=== PATIENT | female | born 1960 | race Caucasian/White ===

== ENCOUNTER 2016-09-10 12:16 | Outpatient (CLI) | payer OTHER | END 2016-09-10 12:17 | disposition home or self-care (01) | DX: R92.1 Mammographic calcification found on diagnostic imaging of breast (principal) ==

== ENCOUNTER 2016-09-21 16:19 | Outpatient (CLI) | payer OTHER | END 2016-09-21 16:20 | disposition home or self-care (01) | DX: M19.041 Primary osteoarthritis, right hand (principal) ==

== ENCOUNTER 2016-11-19 11:25 | Outpatient (CLI) | payer OTHER | END 2016-11-19 11:26 | disposition home or self-care (01) | DX: D48.5 Neoplasm of uncertain behavior of skin (principal) ==

== ENCOUNTER 2016-11-20 14:45 | Outpatient (CLI) | payer OTHER | END 2016-11-20 14:46 | disposition home or self-care (01) | DX: R30.0 Dysuria (principal) ==

== ENCOUNTER 2016-12-28 08:29 | Outpatient (CLI) | payer OTHER ==
--- NOTE | 2016-12-28 12:37 | Ultrasound Report ---
ULTRASOUND LEFT AXILLA: 12/28/2016 CLINICAL INDICATION: Palpable abnormality. 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 FINDINGS: Ultrasound of the palpable abnormality identified by the patient was performed. At this site, there is a 0.7 x 0.5 x 0.3 cm lymph node. No sonographically suspicious findings are identified. IMPRESSION: NORMAL LEFT AXILLARY LYMPH NODE. MTDD
== END 2016-12-28 08:30 | disposition home or self-care (01) ==
LOC: DI 08:29
PROVIDERS: ATTEND Physician Assistant Medical
DX: R22.9 Localized swelling, mass and lump, unspecified (principal)
CPT/HCPCS: 76882

== ENCOUNTER 2017-01-08 08:05 | Outpatient (CLI) | payer OTHER ==
[2017-01-08 11:18] LABS: BASOPHILS % (AUTO) 0.8 %; EOSINOPHILS # (AUTO) 0.1 10^3/uL (0.0-0.7); EOSINOPHILS % (AUTO) 2.4 %; HCT - HEMATOCRIT 38.7 % (37.0-47.0); HGB - HEMOGLOBIN 12.8 g/dL (12.0-16.0); LYMPHOCYTES # (AUTO) 1.9 10^3/uL (1.5-3.5); LYMPHOCYTES % (AUTO) 40.5 %; MEAN CORPUSCULAR HGB CONC 33.1 g/dL (32.0-36.0); MEAN CORPUSCULAR VOLUME 93.8 fL (81.0-99.0); MEAN PLATELET VOLUME 9.4 fL (7.9-10.8); MONOCYTES # (AUTO) 0.2 10^3/uL (0.0-1.0); MONOCYTES % (AUTO) 4.8 %; NEUTROPHILS # (AUTO) 2.4 10^3/uL (1.5-6.6); NEUTROPHILS % (AUTO) 51.5 %; RED BLOOD COUNT 4.13 10^6/uL (4.20-5.40); RED CELL DISTRIBUTION WIDTH 13.6 % (12.0-15.0); UNCORRECTED WHITE BLOOD COUNT 4.6 x10^3/uL; WHITE BLOOD COUNT 4.6 x10^3/uL (4.8-10.8)
[2017-01-08 11:37] LABS: ALBUMIN/GLOBULIN RATIO 1.9 (1.0-2.2); BUN - BLOOD UREA NITROGEN 14 mg/dL (6-20); CALCIUM 9.5 mg/dL (8.5-10.3); CARBON DIOXIDE - CO2 28 mmol/L (21-32); CHLORIDE 102 mmol/L (101-111); CHOL/HDL RATIO 2.2 (<4.4); CHOLESTEROL 205 mg/dL; CREATININE 0.8 mg/dL (0.4-1.0); GFR - MDRD 75 (>89); GLUCOSE 81 mg/dL (70-100); HDL CHOLESTEROL 95 mg/dL; POTASSIUM 3.9 mmol/L (3.5-5.0); SODIUM 137 mmol/L (135-145); TOTAL PROTEIN 6.9 g/dL (6.7-8.2); TRIGLYCERIDES 68 mg/dL; VLDL CHOLESTEROL 14 mg/dL
== END 2017-01-08 08:06 | disposition home or self-care (01) ==
LOC: LAB.R 08:05
PROVIDERS: ATTEND Physician Assistant Medical
DX: Z00.00 Encounter for general adult medical examination without abnormal findings (principal); F32.9 Major depressive disorder, single episode, unspecified; E55.9 Vitamin D deficiency, unspecified; Z79.899 Other long term (current) drug therapy
CPT/HCPCS: 80053; 80061; 82306; 84443; 85025

== ENCOUNTER 2017-02-12 16:08 | Outpatient (CLI) | payer OTHER | END 2017-02-12 16:09 | disposition home or self-care (01) | LOC: LAB 16:08 | PROVIDERS: ATTEND Physician Assistant Medical | DX: Z11.59 Encounter for screening for other viral diseases (principal); Z11.3 Encounter for screening for infections with a predominantly sexual mode of transmission | CPT/HCPCS: 86803; 87389 ==

== ENCOUNTER 2017-10-29 07:48 | Outpatient (CLI) | payer OTHER ==
--- NOTE | 2017-10-30 18:12 | Mammography Report ---
DIGITAL SCREENING MAMMOGRAM: 10/29/2017 INDICATION: A 56-year-old nulliparous patient for screening. COMPARISON: 08/2016, 02/2016, 07/2015, 01/2015, 06/2014, 06/2013, 05/2011, 05/2010. TECHNIQUE: Routine CC and MLO projections were obtained of the breasts. Bilateral laterally exaggerated craniocaudal views. FINDINGS: The breasts demonstrate heterogeneously dense fibroglandular parenchyma bilaterally. Punctate, typically benign calcifications are present. No suspicious masses, clustered microcalcifications, or regions of architectural distortion are identified. IMPRESSION: BENIGN FINDINGS. RECOMMENDATION: Routine annual screening unless otherwise clinically indicated. BIRADS CATEGORY - 2 BENIGN FINDINGS. STANDARD QUALIFYING STATEMENTS: 1. This examination was reviewed with the aid of Computer-Aided Detection (CAD). 2. A negative or benign imaging report should not delay biopsy if clinically suspicious findings are present. Consider surgical consultation if warranted. More than 5% of cancers are not identified by imaging. 3. Dense breasts may obscure an underlying neoplasm. TD: 10/30/2017 18:11
== END 2017-10-29 07:49 | disposition home or self-care (01) ==
LOC: DI 07:48
PROVIDERS: ATTEND Physician Assistant Medical
DX: Z12.31 Encounter for screening mammogram for malignant neoplasm of breast (principal)
CPT/HCPCS: 77067

== ENCOUNTER 2018-01-23 08:19 | Outpatient (CLI) | payer OTHER ==
[2018-01-23 08:49] LABS: BASOPHILS % (AUTO) 1.1 %; EOSINOPHILS # (AUTO) 0.1 10^3/uL (0.0-0.7); EOSINOPHILS % (AUTO) 1.9 %; HGB - HEMOGLOBIN 12.5 g/dL (12.0-16.0); LYMPHOCYTES # (AUTO) 1.7 10^3/uL (1.5-3.5); LYMPHOCYTES % (AUTO) 41.4 %; MEAN CORPUSCULAR HEMOGLOBIN 31.2 pg (27.0-31.0); MEAN CORPUSCULAR HGB CONC 33.3 g/dL (32.0-36.0); MEAN CORPUSCULAR VOLUME 93.8 fL (81.0-99.0); MEAN PLATELET VOLUME 8.6 fL (7.9-10.8); MONOCYTES # (AUTO) 0.3 10^3/uL (0.0-1.0); MONOCYTES % (AUTO) 6.5 %; NEUTROPHILS % (AUTO) 49.1 %; PLT - PLATELET COUNT 256 10^3/uL (130-450); RED BLOOD COUNT 4.01 10^6/uL (4.20-5.40); RED CELL DISTRIBUTION WIDTH 13.2 % (12.0-15.0); WHITE BLOOD COUNT 4.1 x10^3/uL (4.8-10.8)
[2018-01-23 09:12] LABS: ALBUMIN 4.2 g/dL (3.2-5.5); ALBUMIN/GLOBULIN RATIO 1.8 (1.0-2.2); ALKALINE PHOSPHATASE 57 IU/L (42-121); ALT ALANINE AMINOTRANSFERASE 22 IU/L (10-60); AST ASPARTATE AMINOTRANSFERASE 23 IU/L (10-42); BUN - BLOOD UREA NITROGEN 13 mg/dL (6-20); CALCIUM 9.3 mg/dL (8.5-10.3); CARBON DIOXIDE - CO2 28 mmol/L (21-32); CHLORIDE 102 mmol/L (101-111); CHOL/HDL RATIO 2.2 (<4.4); CHOLESTEROL 210 mg/dL; CREATININE 0.9 mg/dL (0.4-1.0); GFR - MDRD 65 (>89); GLUCOSE 97 mg/dL (70-100); HDL CHOLESTEROL 95 mg/dL; LDL CHOLESTEROL,CALCULATED 104 mg/dL; LDL/HDL RATIO 1.1 (<4.4); SODIUM 137 mmol/L (135-145); TOTAL PROTEIN 6.6 g/dL (6.7-8.2); VLDL CHOLESTEROL 11 mg/dL
== END 2018-01-23 08:20 | disposition home or self-care (01) ==
LOC: LAB 08:19
PROVIDERS: ATTEND Physician Assistant Medical
DX: Z00.00 Encounter for general adult medical examination without abnormal findings (principal)
CPT/HCPCS: 36415; 80053; 80061; 83721; 84443; 85025

== ENCOUNTER 2018-09-08 14:46 | Outpatient (CLI) | payer OTHER | END 2018-09-08 14:47 | disposition home or self-care (01) | LOC: SC 14:46 | PROVIDERS: ATTEND Internal Medicine Pulmonary Disease | DX: R06.83 Snoring (principal) | CPT/HCPCS: 99203; 99212 ==

== ENCOUNTER 2018-10-01 19:30 | Outpatient (CLI) | payer OTHER | END 2018-10-01 23:59 | disposition home or self-care (01) | LOC: SC 19:30 | PROVIDERS: ATTEND Internal Medicine Pulmonary Disease | DX: G47.10 Hypersomnia, unspecified (principal) | CPT/HCPCS: 95806 ==

== ENCOUNTER 2018-11-19 16:14 | Outpatient (CLI) | payer OTHER | END 2018-11-19 16:15 | disposition home or self-care (01) | LOC: SC 16:14 | PROVIDERS: ATTEND Nurse Practitioner Family | DX: R06.83 Snoring (principal); R53.83 Other fatigue | CPT/HCPCS: 99212; 99213 ==

== ENCOUNTER 2019-11-11 09:17 | Outpatient (CLI) | payer OTHER ==
[2019-11-11 09:41] LABS: BASOPHILS % (AUTO) 0.5 %; EOSINOPHILS # (AUTO) 0.1 10^3/uL (0.0-0.7); EOSINOPHILS % (AUTO) 1.7 %; HGB - HEMOGLOBIN 12.3 g/dL (12.0-16.0); LYMPHOCYTES # (AUTO) 1.5 10^3/uL (1.5-3.5); LYMPHOCYTES % (AUTO) 37.2 %; MEAN CORPUSCULAR HEMOGLOBIN 31.1 pg (27.0-31.0); MEAN CORPUSCULAR HGB CONC 32.5 g/dL (32.0-36.0); MEAN CORPUSCULAR VOLUME 95.9 fL (81.0-99.0); MEAN PLATELET VOLUME 10.5 fL (7.9-10.8); MONOCYTES # (AUTO) 0.2 10^3/uL (0.0-1.0); MONOCYTES % (AUTO) 5.2 %; NEUTROPHILS # (AUTO) 2.2 10^3/uL (1.5-6.6); NEUTROPHILS % (AUTO) 55.2 %; PLT - PLATELET COUNT 270 10^3/uL (130-450); RED BLOOD COUNT 3.95 10^6/uL (4.20-5.40); RED CELL DISTRIBUTION WIDTH 12.7 % (12.0-15.0)
[2019-11-11 09:47] LABS: ALBUMIN 4.1 g/dL (3.2-5.5); ALBUMIN/GLOBULIN RATIO 1.8 (1.0-2.2); ALKALINE PHOSPHATASE 77 IU/L (42-121); ALT ALANINE AMINOTRANSFERASE 17 IU/L (10-60); AST ASPARTATE AMINOTRANSFERASE 17 IU/L (10-42); BILIRUBIN,TOTAL 0.7 mg/dL (0.2-1.0); BUN - BLOOD UREA NITROGEN 17 mg/dL (6-20); CALCIUM 8.8 mg/dL (8.5-10.3); CARBON DIOXIDE - CO2 29 mmol/L (21-32); CHLORIDE 103 mmol/L (101-111); CHOLESTEROL 218 mg/dL; CREATININE 0.8 mg/dL (0.4-1.0); GLUCOSE 99 mg/dL (70-100); HDL CHOLESTEROL 73 mg/dL; LDL CHOLESTEROL,CALCULATED 136 mg/dL; LDL/HDL RATIO 1.9 (<4.4); SODIUM 136 mmol/L (135-145); TOTAL PROTEIN 6.4 g/dL (6.7-8.2); VLDL CHOLESTEROL 9 mg/dL
== END 2019-11-11 09:18 | disposition home or self-care (01) ==
LOC: LAB 09:17
PROVIDERS: ATTEND Nurse Practitioner
DX: Z00.00 Encounter for general adult medical examination without abnormal findings (principal); R00.2 Palpitations; Z79.890 Hormone replacement therapy; F41.9 Anxiety disorder, unspecified; F32.9 Major depressive disorder, single episode, unspecified
CPT/HCPCS: 36415; 80053; 80061; 83721; 84443; 85025

== ENCOUNTER 2020-01-11 08:40 | Outpatient (CLI) | payer OTHER ==
--- NOTE | 2020-01-12 15:45 | Mammography Report ---
BILATERAL DIGITAL SCREENING MAMMOGRAM 3D/2D: 01/11/2020 CLINICAL: Routine screening. Comparison is made to exams dated: 10/29/2017 mammogram, 09/10/2016 mammogram, 03/01/2016 mammogram, mammogram, 01/18/2015 mammogram, and 07/13/2014 mammogram - [facility]. The tissue of both breasts is extremely dense, which lowers the sensitivity of mammography. There is an oval equal density focal asymmetry with an obscured and circumscribed margin in the right breast at 7 o'clock posterior depth. There is an oval equal density asymmetry with an obscured and indistinct margin in the left breast po sterior depth lateral region seen on the craniocaudal view only. No other significant masses or calcifications are seen in either breast. IMPRESSION: INCOMPLETE: NEEDS ADDITIONAL IMAGING EVALUATION The oval equal density focal asymmetry in the right breast at 7 o'clock posterior depth is indetermin ate. Mediolateral and spot compression views as well as additional views with possible ultrasound ar e recommended. The oval equal density asymmetry in the left breast posterior depth lateral region seen on the cranio caudal view only is indeterminate. Mediolateral and spot compression views as well as additional vie ws with possible ultrasound are recommended. This exam was interpreted at Station ID: [id number]. NOTE: For mammograms, a report in lay terms will be sent to the patient. Approximately 15% of breast malignancies will not be visualized mammographically. In the management of a palpable breast mass, a negative mammogram must not discourage biopsy of a clinically suspicious lesion. Electronically Signed By: Sebas Villalba M.D. ddp/:01/12/2020 10:37:29 ACR BI-RADS Category 0: Incomplete 3340F PARENCHYMAL PATTERN: (VD) - The breast(s) demonstrate(s) extremely dense parenchyma, limiting the sen sitivity of mammography. BI-RADS CATEGORY: (0) - 0 Mammo and [place] [id number] Immediate follow-up LATERALITY: (B)
== END 2020-01-11 08:41 | disposition home or self-care (01) ==
LOC: DI 08:40
PROVIDERS: ATTEND Nurse Practitioner
DX: Z12.31 Encounter for screening mammogram for malignant neoplasm of breast (principal); R92.8 Other abnormal and inconclusive findings on diagnostic imaging of breast
CPT/HCPCS: 77063; 77067

== ENCOUNTER 2020-01-19 13:51 | Outpatient (CLI) | payer OTHER ==
--- NOTE | 2020-01-19 15:56 | XRAY Report ---
PROCEDURE: Foot 2 View LT INDICATIONS: FOOT JOINT PAIN, LEFT TECHNIQUE: 2 views of the foot were acquired. COMPARISON: None. FINDINGS: Bones: There is a dorsal cutaneous BB marker corresponding to the area of clinical symptoms in the f orefoot overlying the second metatarsal shaft. No fractures or dislocations. There is suggestion of cortical thickening in the second metatarsal shaft without a definite periosteal reaction. No discret e fracture line identified. There is mild degeneration of the first metatarsophalangeal joint. Soft tissues: There is mild periarticular soft tissue swelling at the first metatarsophalangeal join t. IMPRESSION: 1. Suggestion of cortical thickening in the second metatarsal which may reflect a stress reaction alt fior there is no definite periosteal thickening. No fracture line identified. Further evaluation may be obtained with an MRI if clinically indicated. Reviewed by: Sebas Villalba MD on 01/19/2020 3:54 PM PDT Approved by: Sebas Villalba MD on 01/19/2020 3:54 PM PDT Station ID: [id number]
== END 2020-01-19 13:52 | disposition home or self-care (01) ==
LOC: DI 13:51
PROVIDERS: ATTEND Nurse Practitioner Family
DX: M79.672 Pain in left foot (principal)

== ENCOUNTER 2020-03-04 10:55 | Outpatient (CLI) | payer OTHER ==
[2020-03-04] MEDS ORDERED: BUPIVACAINE 0.5% PF 10 ML VIAL ONE (11:04)
[2020-03-04] MEDS ORDERED: BUPIVACAINE 0.5% PF 10 ML VIAL IM ONE (17:47)
--- NOTE | 2020-03-09 06:40 | Mammography Report ---
UNILATERAL RIGHT DIGITAL DIAGNOSTIC MAMMOGRAM 3D/2D: 03/04/2020 CLINICAL: Post right breast ultrasound biopsy, clip placement imaging. Comparison is made to exams dated: 02/15/2020 mammogram, 01/11/2020 mammogram, 10/29/2017 mammogram, 08/16 mammogram, 03/01/2016 mammogram, and 08/09/2015 mammogram - [facility]. The t issue of right breast is extremely dense, which lowers the sensitivity of mammography. There is a marker clip in the appropriate position in the right breast 8 oclock position. IMPRESSION: POST PROCEDURE MAMMOGRAM FOR MARKER PLACEMENT There was a successful marker clip placement in the right breast 8 oclock. This exam was interpreted at Station ID: [id number]. NOTE: For mammograms, a report in lay terms will be sent to the patient. Approximately 15% of breast malignancies will not be visualized mammographically. In the management of a palpable breast mass, a negative mammogram must not discourage biopsy of a clinically suspicious lesion. Electronically Signed By: Joseline Lauren M.D. [facility]/:03/08/2020 17:41:02 ACR BI-RADS Category Post-procedure mammogram for marker placement PARENCHYMAL PATTERN: (VD) - The breast(s) demonstrate(s) extremely dense parenchyma, limiting the sen sitivity of mammography. BI-RADS CATEGORY: () - Unspecified - other recall n/a LATERALITY: (B)
--- NOTE | 2020-03-11 07:38 | Ultrasound Report ---
ULTRASOUND GUIDED BIOPSY RIGHT BREAST WITH MARKING DEVICE INSERTED: 03/04/2020 CLINICAL: Right breast mass. PATIENT CONSENT: Risks (minor bleeding, infection, vasovagal reaction and repeat procedure), benefits and alternatives were explained to the patient and written informed consent was obtained. Correlation is made to exams dated: 02/15/2020 ultrasound and 02/15/2020 mammogram - [facility]. An ultrasound guided biopsy using real-time ultrasound was performed for the circumscribed oval cysti c mass located in the right breast at 8 o'clock posterior depth. The skin was prepped in the usual m halie. Topical and local anesthetic was administered to the access site. A small incision was made in the breast. The abnormality was approached from the medial aspect. A biopsy needle was placed ad jacent to the abnormality under ultrasound guidance. Once the needle was documented to be in the cor rect location, a specimen was obtained using an Achieve automated firing device. After the first bio psy pass, the lesion was no longer visualized. A titanium clip was inserted into the biopsy cavity. A sterile dressing was applied to the access site. The specimen was sent to the laboratory for patho logical analysis. IMPRESSION: ULTRASOUND GUIDED BIOPSY BENIGN Ultrasound guided biopsy of the cystic mass in the right breast at 8 o'clock posterior depth was succ essful. Pathology indicates benign ductal epithelial hyperplasia without atypia. Pathology results are concordant with mammography and ultrasound findings. Return to screening mammography recommended. This exam was interpreted at Station ID: [id number]. Joseline Villalba M.D. [facility],ddp/:03/10/2020 08:06:37 BI-RADS CATEGORY: () - Unspecified - other recall n/a LATERALITY: (B)
== END 2020-03-04 10:56 | disposition home or self-care (01) ==
LOC: DI 10:55
PROVIDERS: ATTEND Nurse Practitioner
DX: N62 Hypertrophy of breast (principal)
CPT/HCPCS: 19083

== ENCOUNTER 2021-07-06 13:21 | Outpatient (CLI) | payer OTHER ==
[2021-07-06 14:15] LABS: T4 (THYROXINE) 7.31 ug/dL (6.09-12.23)
[2021-07-06 14:18] LABS: THYROID STIMULATING HORMONE 1.53 uIU/mL (0.34-5.60)
[2021-07-06 14:19] LABS: FREE T3 2.74 pg/mL (2.5-3.9); FREE T4 (FREE THYROXINE) 0.81 ng/dL (0.58-1.64)
== END 2021-07-06 13:22 | disposition home or self-care (01) ==
LOC: LAB 13:21
PROVIDERS: ATTEND Registered Nurse
DX: F33.1 Major depressive disorder, recurrent, moderate (principal); F40.10 Social phobia, unspecified; F41.1 Generalized anxiety disorder; F90.0 Attention-deficit hyperactivity disorder, predominantly inattentive type
CPT/HCPCS: 36415; 81599; 84436; 84439; 84443; 84480; 84481; 84482; 86376; 86800

== ENCOUNTER 2021-11-27 09:56 | Outpatient (CLI) | payer OTHER ==
[2021-11-27 10:09] LABS: BASOPHILS % (AUTO) 0.5 %; EOSINOPHILS # (AUTO) 0.1 10^3/uL (0.0-0.7); HCT - HEMATOCRIT 37.1 % (37.0-47.0); HGB - HEMOGLOBIN 12.1 g/dL (12.0-16.0); LYMPHOCYTES # (AUTO) 1.5 10^3/uL (1.5-3.5); LYMPHOCYTES % (AUTO) 34.6 %; MEAN CORPUSCULAR HEMOGLOBIN 30.4 pg (27.0-31.0); MEAN CORPUSCULAR HGB CONC 32.6 g/dL (32.0-36.0); MEAN CORPUSCULAR VOLUME 93.2 fL (81.0-99.0); MEAN PLATELET VOLUME 9.9 fL (7.9-10.8); MONOCYTES # (AUTO) 0.2 10^3/uL (0.0-1.0); MONOCYTES % (AUTO) 5.2 %; NEUTROPHILS # (AUTO) 2.5 10^3/uL (1.5-6.6); NEUTROPHILS % (AUTO) 57.5 %; PLT - PLATELET COUNT 324 10^3/uL (130-450); RED BLOOD COUNT 3.98 10^6/uL (4.20-5.40); RED CELL DISTRIBUTION WIDTH 13.1 % (12.0-15.0); WHITE BLOOD COUNT 4.4 x10^3/uL (4.8-10.8)
[2021-11-27 10:32] LABS: ALBUMIN 4.3 g/dL (3.2-5.5); ALBUMIN/GLOBULIN RATIO 1.8 (1.0-2.2); ALKALINE PHOSPHATASE 70 IU/L (42-121); ALT ALANINE AMINOTRANSFERASE 20 IU/L (10-60); AST ASPARTATE AMINOTRANSFERASE 23 IU/L (10-42); BILIRUBIN,TOTAL 0.8 mg/dL (0.2-1.0); BUN - BLOOD UREA NITROGEN 18 mg/dL (6-20); CALCIUM 9.2 mg/dL (8.5-10.3); CARBON DIOXIDE - CO2 25 mmol/L (21-32); CHLORIDE 100 mmol/L (101-111); CHOL/HDL RATIO 2.5 (<4.4); CHOLESTEROL 233 mg/dL; CREATININE 0.9 mg/dL (0.4-1.0); GFR - MDRD 64 (>89); GLUCOSE 89 mg/dL (70-100); HDL CHOLESTEROL 92 mg/dL; LDL CHOLESTEROL,CALCULATED 132 mg/dL; LDL/HDL RATIO 1.4 (<4.4); SODIUM 135 mmol/L (135-145); TOTAL PROTEIN 6.7 g/dL (6.7-8.2); TRIGLYCERIDES 46 mg/dL; VLDL CHOLESTEROL 9 mg/dL
[2021-11-27 10:34] LABS: CRP - C-REACTIVE PROTEIN < 1.0 mg/dL (0-1.0)
[2021-11-28 06:11] LABS: HCV AB <0.1 s/co ratio (0.0-0.9)
== END 2021-11-27 09:57 | disposition home or self-care (01) ==
LOC: LAB 09:56
PROVIDERS: ATTEND Internal Medicine
DX: Z00.00 Encounter for general adult medical examination without abnormal findings (principal); F41.9 Anxiety disorder, unspecified; F90.9 Attention-deficit hyperactivity disorder, unspecified type; F32.A Depression, unspecified; R51.9 Headache, unspecified; H61.22 Impacted cerumen, left ear; J30.2 Other seasonal allergic rhinitis; Z11.59 Encounter for screening for other viral diseases
CPT/HCPCS: 36415; 80053; 80061; 83721; 84443; 85025; 85651; 86140; 86803

== ENCOUNTER 2022-09-19 14:11 | Emergency (ER) | payer OTHER ==
[2022-09-19] MEDS ORDERED: IBUPROFEN 600 MG TABLET PO STA (15:40)
[2022-09-19] MEDS ORDERED: TETANUS/DIPHTHERIA/PERTUSSIS 0.5 ML SYRINGE IM ONE (15:40)
--- NOTE | 2022-09-19 15:45 | ED Physician Documentation ---
History of Present Illness - Stated complaint Stated Complaint: FELL HIT CHIN - Chief complaint Chief Complaint: Laceration - Additonal information Additional information: 61-year-old female presents emergency department for evaluation of left jaw pain as well as a laceration to her left chin. Also reporting pain to the left elbow. She works for [employer] and was walking into the office with her arms full. She tripped and fell directly onto the elbow and then struck her chin on the concrete. Did not lose consciousness. Is not anticoagulated. She does have a small 1 cm laceration on the chin. Reporting left elbow pain as w ell as pain in the left TMJ region. Mild trismus. No malocclusion. Review of Systems Constitutional: denies: Fever, Chills Eyes: reports: Reviewed and negative Nose: denies: Epistaxis, Other (1 cm laceration on the right chin. Tenderness to the left TMJ) Throat: reports: Other Cardiac: reports: Reviewed and negative Respiratory: reports: Reviewed and negative GI: reports: Reviewed and negative : reports: Reviewed and negative PD PAST MEDICAL HISTORY - Past Medical History Cardiovascular: None Respiratory: None Endocrine/Autoimmune: None GI: Ulcerative colitis : None HEENT: None Psych: Depression Musculoskeletal: None Derm: None - Present Medications Home Medications: Ambulatory Orders Medication Instructions Recorded Confirmed Control Pill 09/09/13 09/09/13 Bupropion HCl [Bupropion HCl Sr] 450 mg PO 09/09/13 09/09/13 oxyCODONE [Roxicodone] 5 mg PO TID PRN #20 tablet 09/19/22 - Allergies Allergies/Adverse Reactions: Allergies Allergy/AdvReac Type Severity Reaction Status Date / Time No Known Drug Allergies Allergy Verified 09/09/13 14:00 PD ED PE EXPANDED - General General: Alert, No acute distress, Well developed/nourished - HEENT HEENT: Pharynx normal, Other (1 cm laceration right chin.Mild trismus. Pain with opening of the left jaw. No click or malocclusion of teeth). No: Tonsillar exudate - Neck Neck: Supple w/out meningeal sx. No: Adenopathy, No tenderness, Soft tissue TTP, Bony TTP, Limited ROM - Extremities Extremities: Left elbow (Mild tenderness and swelling of the olecranon. No tenderness of either medial or lateral epicondyles. Normal flexion extension and pronation and supination. 2+ radial pulse.) Results - Vitals Vitals: Vital Signs - 24 hr 09/19/22 14:15 Temperature 36.4 C L Heart Rate 80 Respiratory 16 Rate Blood Pressure 161/89 H O2 Saturation 98 Oxygen O2 Source Room air - Rads (name of study) left elbow Relevant Findings:: Final report received (No acute osseous abnormality.) [facility] CT Relevant Findings:: Final report received (Fracture of the neck of the left mandibular condyle) Procedures - Laceration (location) chin Length in cm: 1.5 Wound type: Irregular, Into subcut fat Neurovascular status: Sensory intact, Motor intact Anesthesia: Lidocaine 1% Wound preparation: Irrigated copiously NS Skin layer closure: Nylon, Interrupted, Size #-0 - enter number (6), Sutures - enter # (4) Other: Patient tolerated well, No complications, Neurovascular intact, Tetanus UTD PD Medical Decision Making - ED course Complexity details: reviewed results, re-evaluated patient, considered differential, d/w patient, d/w office 365 consultant (Valentina Phelps MD) ED course: 61-year-old female presents emergency department for evaluation of left jaw pain and a laceration to her chin. She was walking while on the job when she tripped falling forward. She did land on her left elbow. Sustained 1.5 cm laceration to the chin. Also reporting pain in the left jaw near the ear. On presentation she is a Glascow of 15. No focal neurodeficits. She does have mild trismus but no malocclusion of the teeth. A CT of the maxillofacial bones shows a fracture of the neck of the left mandibular condyle. This imaging was shared through hip protocol with Dr. Santos Gil, [facility] surgeon. He reports that this is a nonoperative fracture. He would like to see the patient in his office tomorrow. Patient is to be on a full liquid diet. No softs. The laceration on her chin was closed with 4 sutures. An x-ray of the left elbow was interpreted by the radiologist as negative for fracture. Patient will be discharged with prescription for oxycodone. [employer] [id number] was completed at the bedside. Patient is cleared to return to full duty though she may miss work if operative interventions become necessary. Departure - Departure Disposition: 01 Home, Self Care Clinical Impression: Ground-level fall, Pain in upper jaw Chin laceration Qualifiers: Encounter type: initial encounter Qualified Code(s): S01.81XA - Laceration without foreign body of other part of head, initial encounter Left elbow contusion Qualifiers: Encounter type: initial encounter Qualified Code(s): S50.02XA - Contusion of left elbow, initial encounter Instructions: ED Fx Mandible Prescriptions: oxyCODONE [Roxicodone] 5 mg PO TID PRN #20 tablet PRN Reason: Pain Comments: You are seen today in the emergency department after a fall. You did sustain a laceration to your chin which was closed with 4 sutures. These should be removed in 7 to 10 days. You can shower normally. Apply thin layer of antibiotic ointment to the wound. Unfortunately the CT scan does show that you have a fracture of your left jaw just below the joint. This case was briefly discussed brennan with FS surgeon Dr. Phelps. He does request to see you in office tomorrow. Please call his office at [phone] the office will make arrangements for you to be seen tomorrow. Santos Phelps [address] [place] [address] The type of fracture you have means that you can have a full liquid diet only. These are thin liquids. Not soft foods. Not milkshakes. Thin liquids. In order to make sure you are able to get enough protein I do advise that you buy Ensure With protein drinks and try and drink 2-3 of them a day.
--- NOTE | 2022-09-19 17:11 | XRAY Report ---
PROCEDURE: Elbow 3 View LT INDICATIONS: olecranon pain after fall TECHNIQUE: 4 views of the elbow were acquired. COMPARISON: None FINDINGS: Bones: No fractures or dislocations. No suspicious bony lesions. Soft tissues: No elbow joint effusion. No suspicious soft tissue calcifications. IMPRESSION: No acute osseous abnormality. If clinical symptoms persist, a repeat examination in 7-10 days or adva nced imaging such as MRI is suggested. Reviewed by: Lorenza Driscoll MD on 09/19/2022 5:10 PM [facility] Approved by: Lorenza Driscoll MD on 09/19/2022 5:10 PM [facility] Station ID: [id number]
[2022-09-19] MEDS ORDERED: oxyCODONE 5 MG TABLET PO STA (17:43)
[2022-09-19] MEDS ORDERED: oxyCODONE/ACET 5/325 Prepack 4 PO STA (17:43)
[2022-09-19 17:55] VITALS: BP 148/79
--- NOTE | 2022-09-19 18:04 | CT Report ---
PROCEDURE: MAXILLOFACIAL WO INDICATIONS: left mandibular and TMJ pain after fall TECHNIQUE: Noncontrast 1.5 mm thick axial images acquired from the mandible through the frontal sinuses, with co jennifer and sagittal reformatting. For radiation dose reduction, the following was used: automated ex posure control, adjustment of mA and/or kV according to patient size. COMPARISON: None. FINDINGS: Image quality: Excellent. Bones and teeth: Orbital conley are intact. Sinus conley show no fracture or deformity. Nasal bones and septum are intact. There is a fracture of the neck of the condylar portion of the left mandible. It is very minimally displaced. No other fractures or dislocations identified. Zygomatic arches are i ntact. Pterygoid plates are intact. Visualized portions of the skull base and auditory canals are i ntact. Sinuses: Paranasal sinuses are aerated, without fluid levels, mucosal thickening, or mucoceles. Mas toid air cells are aerated. Soft tissues: No edema, masses, or fluid collections. No enlarged lymph nodes. No soft tissue lace rations or debris. Vascular: Visualized vascular structures appear normal in the absence of contrast. Bony vascular fo ramina and canals are intact. IMPRESSION: Fracture of the neck of the left mandibular condyle. Reviewed by: Tong Aponte MD on 09/19/2022 6:03 PM PST Approved by: Tong Aponte MD on 09/19/2022 6:03 PM PST Station ID: [id number]
== END 2022-09-19 18:16 | disposition home or self-care (01) ==
LOC: ED 14:11
DX: S01.81XA Laceration without foreign body of other part of head, initial encounter (principal); S02.612A Fracture of condylar process of left mandible, initial encounter for closed fracture; S50.02XA Contusion of left elbow, initial encounter; W01.198A Fall on same level from slipping, tripping and stumbling with subsequent striking against other object, initial encounter; Y93.01 Activity, walking, marching and hiking; Y92.481 Parking lot as the place of occurrence of the external cause; Y99.0 Civilian activity done for income or pay
CPT/HCPCS: 12001; 70486; 73080; 90471; 90715; 99283; 99284; A9270

== ENCOUNTER 2022-10-23 08:25 | Outpatient (CLI) | payer OTHER ==
--- NOTE | 2022-10-23 10:00 | CT Report ---
PROCEDURE: UPPER EXTREMITY WO - LT INDICATIONS: ELBOW PAIN TECHNIQUE: Noncontrast 2 mm axial sections were acquired through the elbow joint, with coronal and sagittal refo rmats. For radiation dose reduction, the following was used: automated exposure control, adjustment of mA and/or kV according to patient size. COMPARISON: Left elbow radiographs 323. FINDINGS: Image quality: Excellent. Bones: There is a nondisplaced transverse intra-articular fracture of the radial head. No significan t step-off is seen at the articular surface. Fracture fragment measures approximately 2.0 x 1.0 x 0.5 cm. The remaining visualized osseous structures are intact. Soft tissues: No significant joint effusion. The articular cartilages, ligaments, and tendons are no t evaluated with standard CT. The musculature surrounding the elbow is normal in bulk. IMPRESSION: Nondisplaced intra-articular fracture of the radial head. No significant step-off is see n at the articular surface. Reviewed by: Jacky Garnica MD on 10/23/2022 9:59 AM PDT Approved by: Jacky Garnica MD on 10/23/2022 9:59 AM PDT Station ID: [id number]
== END 2022-10-23 08:26 | disposition home or self-care (01) ==
LOC: DI 08:25
PROVIDERS: ATTEND Internal Medicine
DX: S52.125A Nondisplaced fracture of head of left radius, initial encounter for closed fracture (principal)

== ENCOUNTER 2022-10-30 14:32 | Outpatient (CLI) | payer OTHER ==
--- NOTE | 2022-10-31 12:47 | XRAY Report ---
PROCEDURE: Elbow 3 View LT INDICATIONS: LEFT ELBOW FRACTURE TECHNIQUE: 3 views of the elbow were acquired. COMPARISON: X-ray left elbow, 09/19/2022. CT 10/23/2022. FINDINGS: Bones: Healing fracture of the radial head with stable alignment. No suspicious bony lesions. Soft tissues: No effusion. No suspicious soft tissue calcifications or masses. IMPRESSION: 1. Healing nondisplaced radial head fracture. Reviewed by: Lorenza Driscoll MD on 10/31/2022 12:46 PM PDT Approved by: Lorenza Driscoll MD on 10/31/2022 12:46 PM PDT Station ID: [id number]
== END 2022-10-30 14:33 | disposition home or self-care (01) ==
LOC: DI.WOS 14:32
PROVIDERS: ATTEND Orthopaedic Surgery
DX: S52.125D Nondisplaced fracture of head of left radius, subsequent encounter for closed fracture with routine healing (principal)

== ENCOUNTER 2023-04-24 08:18 | Outpatient (CLI) | payer OTHER ==
--- NOTE | 2023-04-25 10:01 | Mammography Report ---
BILATERAL DIGITAL SCREENING MAMMOGRAM 3D/2D: 04/24/2023 CLINICAL: High risk screening. Comparison is made to exams dated: 03/06/2022 mammogram, 03/04/2020 mammogram, 02/15/2020 mammogram, 12/14 mammogram, 10/29/2017 mammogram, and 09/10/2016 mammogram - [facility]. Both breasts are heterogeneously dense, which may obscure small masses (category c / 51-75% glandular tissue). There is a biopsy clip in the right breast. No significant masses, calcifications, or other findings are seen in either breast. There has been no significant interval change. IMPRESSION: NEGATIVE There is no mammographic evidence of malignancy. A 1 year screening mammogram is recommended. Based on Tyrer-Cuzick model (a risk assessment model), the patient's lifetime risk is 24.7% and her 1 0 year risk is 10.5%. If a patient has an elevated risk, a more comprehensive evaluation should be co nsidered and/or a referral to a genetic counselor. The [place] [employer], [employer], and NCCN Guidelines advise the consideration of Breast MRI as an adjunct to screening mammo graphy in patients whose "Lifetime risk to develop breast cancer" is 20% or higher. This exam was interpreted at Station ID: [id number]. NOTE: For mammograms, a report in lay terms will be sent to the patient. Approximately 15% of breast malignancies will not be visualized mammographically. In the management of a palpable breast mass, a negative mammogram must not discourage biopsy of a clinically suspicious lesion. Electronically Signed By: Vazquez Adams M.D. aty/:04/25/2023 07:04:57 letter sent: No_Letter ACR BI-RADS Category 1: Negative 3341F PARENCHYMAL PATTERN: (D) - The breast(s) demonstrate(s) heterogeneously dense fibroglandular elisa haney. BI-RADS CATEGORY: (1) - 1 Mammogram [id number] 1 year screening LATERALITY: (B)
== END 2023-04-24 08:19 | disposition home or self-care (01) ==
LOC: DI 08:18
PROVIDERS: ATTEND Internal Medicine
DX: Z12.31 Encounter for screening mammogram for malignant neoplasm of breast (principal); R92.333 Mammographic heterogeneous density, bilateral breasts

== ENCOUNTER 2023-04-24 08:18 | Outpatient (CLI) | payer OTHER ==
--- NOTE | 2023-04-24 12:24 | DEXA Report ---
PROCEDURE: Dexa Spine and/or Hip INDICATIONS: POST MENOPAUSAL TECHNIQUE: Dual energy x-ray absorptiometry (DXA) was performed on a [employer] System. Regions measur ed are the AP Spine, femoral neck, and if needed forearm. COMPARISON: None FINDINGS: Lumbar Spine: Bone Mineral Density 1.022 g/cm/cm,T score -1.0. Left Femoral Neck: Bone Mineral Density 0.785 g/cm/cm, T score -0.9. Left Hip: Bone Mineral Density 0.778 g/cm/cm,T score -1.2. (T score greater or equal to -1.0: NORMAL) (T score from -1.1 to -2.4: OSTEOPENIA) (T score less than or equal to -2.5 to: OSTEOPOROSIS) Impression: By WHO criteria, this patient has low bone density (osteopenia). Patients with diagnosis of osteoporosis or osteopenia should have regular bone mineral density assess ment. For those eligible for Medicare, routine testing is allowed once every 2 years. Testing frequ ency can be increased for patients who have rapidly progressing disease or for those who are receivin g medical therapy to restore bone mass. Reviewed by: Vero Briones MD on 04/24/2023 12:23 PM PDT Approved by: Vero Briones MD on 04/24/2023 12:23 PM PDT Station ID: [id number]
== END 2023-04-24 08:19 | disposition home or self-care (01) ==
LOC: DI 08:18
PROVIDERS: ATTEND Internal Medicine
DX: Z78.0 Asymptomatic menopausal state (principal); M85.80 Other specified disorders of bone density and structure, unspecified site

== ENCOUNTER 2023-04-30 08:45 | Outpatient (CLI) | payer OTHER ==
--- NOTE | 2023-04-30 09:23 | Sleep Patient Instructions ---
Sleep Center Visit Summary - Patient Visit Information Reason for Visit: Initial consult for evaluation of sleep disordered breathing and other sleep issues. - Patient Instructions Instructions Attached: Sleep Clinic Visit, Sleep Study, Sleep Study Home Monitor Additional Instructions: You will be completing a sleep study, either an in-lab polysomnography (PSG) or home sleep study (HST). You will follow-up in the sleep care office after the sleep study is completed to hear the results and talk about therapy, if needed. You will be called by our office staff to schedule this appointment, but you may contact us with any questions. - Clinic Information Contact: [facility] [address] [place] [address] [email or web address] T: [phone]
--- NOTE | 2023-04-30 09:35 | SLEEP CARE CONSULTATION ---
Information from patient questionnaire entered by Ja Gonzales. I have reviewed and concur with the information entered by Ja Gonzales. This document represents the service I personally performed and the decisions made by me, Leeanna Swift ARNP. History of Present Illness Service Date and Time: 04/30/2023 0845 Reason for Visit: New patient Chief Complaint: reports: Unrefreshed sleep, Fatigue Date of Onset: 52 years Usual bedtime: 10 PM Time it takes to fall asleep: 20-30 minutes Snores at night: Yes (per ; not sure if accurate) Observed to quit breathing while asleep: No Sleeps alone due to snoring: No Number of times waking at night: 0-3 Reasons for waking at night: reports: Snoring, Pain, Bathroom. denies: Choking, Gasping for air Toss, Turn, or Twitch while sleeping: Yes Recalls having dreams: No Usually gets out of bed at: 6:30 AM Feels refreshed in the morning: No Morning headache: No Sleepy or fatigued during the day: Yes Ever fallen asleep while driving: No Takes day naps: Yes (Rarely) Dreams during day naps: No Prior sleep studies: Yes Year and Where: 10 + years ago, [facility] Additional HPI information: I had the pleasure of seeing GLADYS CHUN today regarding the possibility of her having a sleep disorder. Her current complaints are fatigue and unrefreshed sleep. She states that her tells her that she is snoring "very bad" and sometimes she will wake herself up. She has gained about 25 pounds since her last study. She "never wakes up feeling rested" and has fatigue during the day. She has been previously diagnosed with mild obstructive sleep apnea and seen in this office in 2014. Her obstructive sleep apnea was positional and she has been doing positional therapy to control her sleep apnea by avoiding supine sleep. She returns because of increasing daytime fatigue and not feeling rested at night just to see if there has been any changes. - Parasomnia Symptoms Ever been unable to move upon waking from sleep: No Walks in sleep: No Talks in sleep: No Ever acted out dreams in sleep: No Ever felt weak in the knees when startled or emotional: No Bothered by creepy, crawly, restless sensations in legs: Yes (My knees twitch at night; just when on her back) Problems with memory or concentration: Yes (memory because hard to remember is tired; has ADHD) Subjective Initial [place] Sleepiness Scale score: 1 (in 2018) Current [place] Sleepiness Scale score: 2 (in 2022) Past Medical History Past Medical History: reports: Arthritis (in thumbs), Anxiety, Depression, Attention deficit, Other (Osteopenia; menopause) Social History 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 Patient is and lives in [place]. Have you smoked in the past 12 months: No Cigarettes per day (20/pack): 30 Years of smokin Quit date: 30 years ago Smoking Pack Years: 15.0 Alcohol use: Yes Alcohol amount and frequency: Rarely Caffeine use: Yes Caffeine amount and frequency: 2-3 in the AM Family History Family history of sleep disordered breathing: Yes Family Hx Sleep Apnea: Father: Snoring (Not any longer) Allergies and Home Medications Known drug allergies: No Drug allergies reviewed: Yes Home medication list reviewed: Yes (as listed and as scanned into chart) Allergy and home medication list: Allergies No Known Drug Allergies Allergy (Verified 04/29/23 08:52) Home Medications Medication Instructions Recorded Confirmed Last Taken Type Bupropion HCl [Bupropion HCl Sr] 450 mg PO 09/09/13 09/09/13 09/09/13 History Dexmethylphenidate HCl 10 mg ORAL DAILY 04/30/23 04/30/23 Unknown History Dextroamphetamine 30 mg ORAL DAILY 04/30/23 04/30/23 Unknown History Estradiol 0.01 .ROUTE 04/30/23 Unknown History Guanfacine HCl 2 mg ORAL DAILY 04/30/23 04/30/23 Unknown History Review of Systems Weight gain over past 5 years: 20 + Weight loss over past 5 years: 20 + Cardiovascular: denies: high blood pressure Gastrointestinal: denies: heartburn Neurological: denies: headaches Psychiatric: reports: Attention Deficit Hyperactivity, anxiety, depression Ear/Nose/Throat: reports: nasal congestion, dry mouth/throat, tonsillectomy, wisdom teeth removed Endocrine: reports: sluggishness (/tired), other (Menopause) Musculoskeletal: reports: joint pain (/stiffness) Immunologic: reports: sneezing (/running nose) Physical Exam Vital signs obtained and entered by: Leeanna Amin NP Blood Pressure: 127/77 Cuff size: wrist (right) Heart Rate: 70 O2 Saturation: 96 Height: 5 ft 8 in Weight: 178 lb 3.2 oz Body Mass Index: 27.1 BMI Classification: Overweight Neck circumference: 13 (inches) Mouth and throat: narrow oropharynx Soft palate: normal Hard palate: normal Uvula: normal Uvula visualization: 25% Mallampati Class III Tongue: enlarged in size with teeth deleon on lateral edges Tonsils: absent bilaterally Neck: normal w/o lymphadenopathy or thyromegaly Heart: regular rate and rhythm Lungs: clear bilaterally Impression and Plan 1. Suspected Obstructive Sleep Apnea-Hypopnea Syndrome, as previously diagnosed and as suggested by a history of loud and irregular snoring, unrefreshed sleep and cognitive impairment. Narrow oropharynx and obesity are common predisposing factors for obstructive sleep apnea-hypopnea syndrome. I recommend proceeding to polysomnography to confirm the diagnosis and to assess severity. If the patient has significant sleep disordered breathing, a manual CPAP titration study will also be performed to find the optimal treatment pressure. I informed the patient of what the sleep studies involve and after some discussion, obtained agreement to proceed. The pathophysiology of obstructive sleep apnea-hypopnea syndrome was discussed with the patient and health risks of cardiovascular and cerebrovascular disease if not treated. Risks of drowsy driving discussed in detail and patient advised to avoid long distance driving and to machine puller over at the first sign of drowsiness. Patient agreed to plan. * Schedule polysomnography. * Avoid long distance driving or driving when feeling sleepy. * Avoid alcohol, sedative and muscle relaxant around bedtime. * Attempt to lose weight. * Review instructions provided by trained office staff on how to prepare for the sleep study. * Return for follow-up after sleep study completed. Counseling Topics: Weight loss health impact Plan: PSG Visit Type: In Office Time Spent with Patient (minutes): 36 Provider Statement: I spent 100% of the Face to Face Visit with the patient with greater than 50% spent counseling the patient and coordination of care.
[2023-04-30 09:43] VITALS: BP 127/77; O2SAT 96
== END 2023-04-30 08:46 | disposition home or self-care (01) ==
LOC: SC 08:45
PROVIDERS: ATTEND Nurse Practitioner Family
DX: G47.8 Other sleep disorders (principal); R06.83 Snoring; R41.89 Other symptoms and signs involving cognitive functions and awareness; E66.3 Overweight; R53.83 Other fatigue; Z68.27 Body mass index [BMI] 27.0-27.9, adult; Z87.891 Personal history of nicotine dependence
CPT/HCPCS: 99203; 99212

== ENCOUNTER 2023-06-27 19:29 | Outpatient (CLI) | payer OTHER | END 2023-06-27 19:30 | disposition home or self-care (01) | LOC: SC 19:29 | PROVIDERS: ATTEND Nurse Practitioner Family | DX: R53.83 Other fatigue (principal); R06.83 Snoring; G47.8 Other sleep disorders; F32.A Depression, unspecified; E66.3 Overweight; Z68.27 Body mass index [BMI] 27.0-27.9, adult | CPT/HCPCS: 95810 ==

== ENCOUNTER 2023-07-17 14:19 | Outpatient (CLI) | payer OTHER ==
--- NOTE | 2023-07-17 14:10 | SLEEP CARE CONSULTATION ---
Information from patient questionnaire entered by Елена Clark. I have reviewed and concur with the information entered by Елена Clark. This document represents the service I personally performed and the decisions made by , Leeanna Swift ARNP. History of Present Illness Service Date and Time: 07/17/2023 1400 Initial [place] Sleepiness Scale score: 1 (in 2019) Current [place] Sleepiness Scale score: 8 (07/17/23) Additional HPI information: GLADYS CHUN returns via video appointment for follow up and results of the recently performed polysomnography. The patient was informed of the following findings: No significant sleep d isordered breathing with an average AHI of 1.7 and belen oxygen saturation of 85%. I explained the pathophysiology behind obstructive sleep apnea. Patient does not have sleep apnea and was advised how weight gain could increase the risk of developing sleep apnea in the future. Patient has light snoring. Snoring can also be treated with an oral appliance from a dentist. Advised to check insurance coverage. In addition, an ENT evaluation can be do to see if other treatment is indicated. Patient counseled not drink alcohol less than 4 hours before bedtime as it can increase snoring and apnea. Patient was cautioned about risks of drowsy driving until sleepiness symptoms resolve. Patient denies drowsy driving. Sleep Study - Results Type of Sleep Study: Polysomnography (COMPLETED 06/27/23) Prior sleep studies: Yes Year and Where: 10 + years ago, [facility] Polysomnography/Home Sleep Study results: IMPRESSION: The quality of the study is good. The patient had normal sleep efficiency. The sleep architecture was 4also normal. Respiratory monitoring showed no significant sleep disordered breathing (AHI = 1.7) or hypoxia (belen oxygen saturation of 85%). The rare respiratory events occurred only during supine REM sleep (supine AHI = 2.4; non-supine = 0.00). Snore was light in intensity. There was no significant periodic leg movement of sleep. Cardiac rhythm was normal sinus rhythm without significant arrhythmia. No abnormal behavior (parasomnia) observed during the night. Allergies and Home Medications Known drug allergies: No Drug allergies reviewed: Yes Home medication list reviewed: Yes (no changes) Allergy and home medication list: Allergies No Known Drug Allergies Allergy (Verified 07/16/23 10:33) Review of Systems Review of systems same as previous: Yes (NO CHANGE) Physical Exam Vital signs obtained and entered by: ЕЛЕНА Celis MA Height: 5 ft 8 in (PER PT) Weight: 180 lb (PER PT) Body Mass Index: 27.3 BMI Classification: Overweight Impression and Plan 1. Snoring but no significant sleep disordered breathing. Patient advised that often weight loss will reduce snoring as well as apnea risk. An oral appliance can also be used for snoring. This would require a dental consultation. Patient cautioned not to use other online appliances as can cause bite issues. A list of accredited dentists in area is available in office as needed. Patient is advised to check if insurance will cover. An ENT consult can also be helpful to determine if any other treatment is an option. 2. Overweight, unspecified. Currently patients BMI is 27.3. Obesity increases the risk of apnea, CPAP pressure requirements and overall health risks especially cardiovascular and diabetes. Thus patient is advised to lose weight. * Maintain a healthy weight * Avoid alcohol consumption near bedtime * The patient is cautioned about driving until sleepiness is completely resolved. * Return as needed for follow up. Counseling Topics: Weight control Follow up with Sleep Care in: as needed Visit Type: Telehealth Video Video Type: Doximity Patient Location: work Location of Provider: Office Patient agrees and consents to this telehealth visit type: Yes Patient agrees to have their insurance billed: Yes Time Spent with Patient (minutes): 12 Provider Statement: I spent 100% of the Telehealth Video Call with the patient with greater than 50% spent counseling the patient and coordination of care.
== END 2023-07-17 14:20 | disposition home or self-care (01) ==
LOC: SC 14:19
PROVIDERS: ATTEND Nurse Practitioner Family
DX: R06.83 Snoring (principal); E66.3 Overweight; Z68.27 Body mass index [BMI] 27.0-27.9, adult